=== PATIENT | female | born 1945 | race Asian ===

== ENCOUNTER 2021-03-30 00:57 | Emergency (ER) | payer MEDICARE, MEDICAID, SELFPAY ==
[2021-03-30] VITALS (7 sets, daily range): BP systolic 169–204; BP diastolic 61–125; PULSE 103–115; RESP 19–24; TEMP 37–37.2; O2SAT 92–99; BMI 19.3
--- NOTE | ~2021-03-30 | XR_ITS ---
EXAMINATION: XR CHEST CLINICAL INFORMATION: Shortness of breath, rule out pneumonia, CHF COMPARISON: None TECHNIQUE: Frontal view of the chest was obtained. FINDINGS: Lung volumes are symmetric. There is prominence of the central vasculature with scattered perihilar opacities bilaterally. Dense retrocardiac opacity noted at the left base. Small left pleural effusion. No appreciable pneumothorax. Cardiac size is within normal limits. There is atherosclerotic calcification along the aorta. No acute osseous findings are seen. XR/XR chest 1V IMPRESSION: Prominent central vasculature with scattered perihilar opacities and dense retrocardiac left basilar opacity. Central vascular congestion is suspected, and parenchymal findings therefore may be secondary to edema, though multifocal pneumonia could also have this appearance.
--- NOTE | 2021-03-30 01:20 | PC.NURSE ---
pt sat on room air 88%, 2L Applied and sat improved to 98% on 2l
--- NOTE | 2021-03-30 04:40 | ECG_ITS ---
Test Reason : cp,sob Blood Pressure : / mmHG Vent. Rate : 110 BPM Atrial Rate : 110 BPM P-R Int : 126 ms QRS Dur : 074 ms QT Int : 340 ms P-R-T Axes : 057 071 058 degrees QTc Int : 460 ms Sinus tachycardia Possible Left atrial enlargement Borderline ECG No previous ECGs available Referred By: Eric Roque Electronically Signed By:LESLIE TREVINO MD
--- NOTE | 2021-03-30 04:41 | ED.SOB ---
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 The patient has end-stage renal disease and was getting hemodialysis. The patient recently switched over to peritoneal dialysis. According to her daughter, the patient was being trained at a facility and last got peritoneal dialysis on Tuesday (2 days prior). The plan was to start peritoneal dialysis again on Tuesday. The daughter states that the patient was complaining of fatigue over the past 1-2 days, she was complaining of shortness of breath and the patient's face looked puffy. The daughter was concerned about these symptoms this morning and called an ambulance and had the patient transported to the hospital for evaluation. MD elicited complaint: shortness of breath Pertinent past history: other (End-stage renal disease, just started peritoneal dialysis) Onset (ago): day(s) (1) Timing: constant Severity: moderate Exacerbating factors: nothing Relieving factors: nothing Associated symptoms: cough Treatment prior to arrival: none Related Data Allergies Allergy/AdvReac Type Severity Reaction Status Date / Time amoxicillin Allergy Unknown Unknown Verified 03/30/21 04:39 Review of Systems Review of Systems: Yes all other systems are reviewed and are negative [facility] Social History Social History Advance Directives: No Physical Exam Vital Signs: Vital Signs: Last Vital Signs Temp 98.7 F 03/30/21 05:26 Pulse 105 H 03/30/21 05:26 Resp 20 03/30/21 05:26 BP 186/61 H 03/30/21 05:26 Pulse Ox 92 03/30/21 05:26 Oxygen Flow Rate 2 03/30/21 01:06 BMI result Body Mass Index 19.3 Const: General: cooperative and no acute distress Orientation/consciousness: oriented to person and oriented to place Limitations: no limitations HENMT: Head: Yes normal to inspection, Yes normocephalic and Yes atraumatic Ears: external ears normal General nose exam: Normal external nose present Face and sinus: Yes normal facial exam Mouth: Normal oral and palatal mucosa present Throat: Yes posterior oropharynx normal Eyes: General: appearance normal, both eyes and all related structures Pupils: Equal, round and reactive pupils present Neck: Neck: Yes normal visual inspection, Yes no lymphadenopathy, Yes trachea midline and Yes supple Chest: Chest palpation & inspection: normal inspection of the chest and normal palpation of entire chest wall Resp: Effort & Inspection: normal respiratory effort Auscultation: clear to auscultation bilaterally and rales (At bases, symmetric) Cardio: Rate: regular rate Rhythm: regular rhythm Heart sounds: S1 normal heart sound present, S2 normal heart sound present and no murmurs GI: Inspection: Yes normal to inspection Palpation (GI): Soft to palpation, nontender and no guarding Auscultation: normal bowel sounds : General: Yes no CVA tenderness Back/Spine/Pelvis: Back: no CVA tenderness Skin: General skin exam: no rashes or lesions noted Neuro: General: oriented to person and oriented to place Cranial nerves: Yes CN's II-XII intact bilaterally and Yes Equal, round and reactive pupils present Cognition (Neuro): normal cognition Motor exam (neuro): 5/5 motor strength present throughout Extrem: General: Yes normal to inspection Psych: Appearance: grossly normal Affect: normal affect Attitude: cooperative Thought process: Normal thought process present Course Course Course Narrative: 76-year-old female who has a history of end-stage renal disease who was on hemodialysis who just recently changed to peritoneal veil dialysis. Peritoneal dialysis was last done on Tuesday (2 days prior). Apparently over the past 1-2 days the patient has been more short of breath, fatigued and the daughter noticed puffiness of the patient's face. Therefore the daughter called 911 and had the patient transported to the emergency department for evaluation. Initial vital signs revealed an elevated blood pressure of 194/125, repeat was 185/66, patient is tachycardic with a pulse ranging mental 5-115, respiratory rate ranged from 19 to 24, she was afebrile and her O2 saturation on room air was 98%. The patient does not appear to be in distress. Lung exam did reveal rales at the bases. Differential includes but is not limited to pneumonia, CHF, fluid overload. I ordered a CBC, CMP, BNP, troponin, COVID-19, EKG, one-view chest x-ray. 0657: Patient's laboratory evaluation revealed chronic anemia with an H&H of 8.3 and 26. Patient's BUN and creatinine were elevated 58 in 10.2. Potassium was elevated at 5.6. Troponin was elevated at 700. COVID-19 was negative. Chest x-ray is consistent with congestive heart failure. I will discuss the patient's presentation with the covering transportation museum helper. Impression is that the patient may need to be hospitalized for either peritoneal dialysis or hemodialysis. 0728: At the end of my shift, still waiting for the transportation museum helper call back. Therefore the patient's care was turned over to my colleague, Dr. Linda Ruiz. I did update the patient's daughter on the plan to admit the patient for hemodialysis. MDM - SOB/Dyspnea Lab Data Result diagrams: 03/30/21 06:02 03/30/21 06:02 Labs: Lab Results 03/30/21 03/30/21 03/30/21 Range/Units 06:02 06:02 06:02 WBC 10.2 (4.8-10.8) X10*3/uL RBC 2.61 L (4.20-5.50) X10*6/uL Hgb 8.3 L (12.0-16.0) g/dl Hct 26.0 L (37.0-47.0) % MCV 99.6 H (80.0-98.0) fL MCH 31.8 (27.0-33.0) pg MCHC 31.9 (31.0-35.0) g/dl RDW 15.3 (11.0-16.0) % Plt Count 186 (160-400) X10*3/uL MPV 10.1 (9.4-12.3) fL Immature Gran % (Auto) 0.5 H (0.0-0.4) % Neut % (Auto) 75.2 H (45-73) % Lymph % (Auto) 15.3 L (20-40) % [place] % (Auto) 8.1 (2-11) % Eos % (Auto) 0.6 (0-4) % Baso % (Auto) 0.3 (0-2) % Lymph # (Auto) 1.6 (1.2-4.9) X10*3/uL [place] # (Auto) 0.8 (0.1-1.2) X10*3/uL Eos # (Auto) 0.1 (0.0-0.4) X10*3/uL Baso # (Auto) 0.0 (0.0-0.2) X10*3/uL Abs Immat Gran (auto) 0.05 H (0.00-0.03) X10*3/uL Absolute Neuts (auto) 7.7 (2.0-8.3) x10*3/uL Absolute Nucleated RBC 0.000 (0.0-0.012) X10*3/uL Nucleated RBC % (auto) 0.0 (0.0-0.2) /100WBC Sodium 140 (135-145) mmol/L Potassium 5.6 H (3.3-5.1) mmol/L Chloride 103 (96-108) mmol/L Carbon Dioxide 22 (22-29) mmol/L Anion Gap 21 H (12-20) BUN 58 H (9-16) mg/dL Creatinine 10.24 H* (0.5-1.4) mg/dL Estim Creat Clear Calc 3.2 Estimated GFR 4 Random Glucose 117 H (60-115) mg/dL Calcium 9.1 (8.4-10.2) mg/dL Total Bilirubin 0.6 (0.0-1.0) mg/dL AST 16 (5-31) U/L ALT 6 (0-31) U/L Alkaline Phosphatase 99 (39-117) U/L Troponin I High Sens 700.9 H* (<3.5-17.0) ng/L B-Natriuretic Peptide 3010 H (<100) pg/mL Total Protein 6.0 L (6.5-8.0) g/dL Albumin 3.6 (3.5-5.0) g/dL Lipase 23 (8-78) U/L COVID-19 ([facility]ENE) (Negative) COVID-19 Clin Com 03/30/21 Range/Units 06:02 WBC (4.8-10.8) X10*3/uL RBC (4.20-5.50) X10*6/uL Hgb (12.0-16.0) g/dl Hct (37.0-47.0) % MCV (80.0-98.0) fL MCH (27.0-33.0) pg MCHC (31.0-35.0) g/dl RDW (11.0-16.0) % Plt Count (160-400) X10*3/uL MPV (9.4-12.3) fL Immature Gran % (Auto) (0.0-0.4) % Neut % (Auto) (45-73) % Lymph % (Auto) (20-40) % [place] % (Auto) (2-11) % Eos % (Auto) (0-4) % Baso % (Auto) (0-2) % Lymph # (Auto) (1.2-4.9) X10*3/uL [place] # (Auto) (0.1-1.2) X10*3/uL Eos # (Auto) (0.0-0.4) X10*3/uL Baso # (Auto) (0.0-0.2) X10*3/uL Abs Immat Gran (auto) (0.00-0.03) X10*3/uL Absolute Neuts (auto) (2.0-8.3) x10*3/uL Absolute Nucleated RBC (0.0-0.012) X10*3/uL Nucleated RBC % (auto) (0.0-0.2) /100WBC Sodium (135-145) mmol/L Potassium (3.3-5.1) mmol/L Chloride (96-108) mmol/L Carbon Dioxide (22-29) mmol/L Anion Gap (12-20) BUN (9-16) mg/dL Creatinine (0.5-1.4) mg/dL Estim Creat Clear Calc Estimated GFR Random Glucose (60-115) mg/dL Calcium (8.4-10.2) mg/dL Total Bilirubin (0.0-1.0) mg/dL AST (5-31) U/L ALT (0-31) U/L Alkaline Phosphatase (39-117) U/L Troponin I High Sens (<3.5-17.0) ng/L B-Natriuretic Peptide (<100) pg/mL Total Protein (6.5-8.0) g/dL Albumin (3.5-5.0) g/dL Lipase (8-78) U/L COVID-19 ([facility]ENE) Negative (Negative) COVID-19 Clin Com See Note Discharge Plan Discharge Clinical Impression: CHF (congestive heart failure), Acute hyperkalemia Patient Disposition: Still a Patient
[2021-03-30 06:08] LABS: Basophils Percent Auto 0.3 % (0-2); Eosinophils Absolute Auto 0.1 X10*3/uL (0.0-0.4); Eosinophils Percent Auto 0.6 % (0-4); Hemoglobin 8.3 g/dl (12.0-16.0); Imm Gran Abs Auto 0.05 X10*3/uL (0.00-0.03); Imm Gran Pct Auto 0.5 % (0.0-0.4); Lymphocytes Absolute Auto 1.6 X10*3/uL (1.2-4.9); Lymphocytes Percent Auto 15.3 % (20-40); MANUAL DIFF FLAG NO; Mean Corpuscular HGB Conc 31.9 g/dl (31.0-35.0); Mean Corpuscular Hemoglobin 31.8 pg (27.0-33.0); Mean Corpuscular Volume 99.6 fL (80.0-98.0); Mean Platelet Volume 10.1 fL (9.4-12.3); Monocytes Absolute Auto 0.8 X10*3/uL (0.1-1.2); Monocytes Percent Auto 8.1 % (2-11); Neutrophils Absolute Auto 7.7 x10*3/uL (2.0-8.3); Neutrophils Percent Auto 75.2 % (45-73); Platelet Count 186 X10*3/uL (160-400); Red Blood Count 2.61 X10*6/uL (4.20-5.50); Red Cell Distribution Width 15.3 % (11.0-16.0); White Blood Count 10.2 X10*3/uL (4.8-10.8)
--- NOTE | 2021-03-30 06:20 | PC.NURSE ---
pt is a difficult iv stick, labs obtained but unable to place iv at this time.
[2021-03-30 06:21] LABS: COVID-19 Test Negative (Negative); IDNOW Serial# 9DD0AD1C
[2021-03-30 06:24] LABS: Alanine Aminotransferase 6 U/L (0-31); Albumin Level 3.6 g/dL (3.5-5.0); Alkaline Phosphatase 99 U/L (39-117); Anion Gap 21 (12-20); Aspartate Amino Transferase 16 U/L (5-31); Bilirubin Total 0.6 mg/dL (0.0-1.0); Blood Urea Nitrogen 58 mg/dL (9-16); Calcium 9.1 mg/dL (8.4-10.2); Carbon Dioxide 22 mmol/L (22-29); Chloride 103 mmol/L (96-108); Glucose Random 117 mg/dL (60-115); Lipase 23 U/L (8-78); Potassium 5.6 mmol/L (3.3-5.1); Sodium 140 mmol/L (135-145)
[2021-03-30 06:25] LABS: Creatinine Clr Calc Pharmacy 3.2; Estimated Glomerular Filt Rate 4
[2021-03-30 06:27] LABS: B Type Natriuretic Peptide 3010 pg/mL (<100)
[2021-03-30 06:30] LABS: Troponin-I High Sensitivity 700.9 ng/L (<3.5-17.0)
[2021-03-30] MEDS: Nitroglycerin 2 % Oint 1 GM Packet 1 INCH TRANSDERMA (09:53)
[2021-03-30] MEDS: Furosemide 100 MG/10 ML VIAL 80 MG IVPUSH (09:53)
--- NOTE | 2021-03-30 10:00 | PC.NURSE ---
CALL PLACED TO [facility] PER DR GONZÁLES @ THIS TIME [place] ANSWERS,TAKES PTT INFO AND ASKS TO SPEAK WITH DR GONZÁLES
--- NOTE | 2021-03-30 10:46 | PC.NURSE ---
DANISH FROM [facility] PT PLACEMENT CALLS @ THIS TIME AND ASKS TO SPEAK WITH DR GONZÁLES, DR GONZÁLES TAKES OVER CALL RIGHT AWAY
--- NOTE | 2021-03-30 10:50 | PHA.MEDREC ---
Pharmacy Consult ? Medication Reconciliation Pharmacy has completed the medication reconciliation. Spoke to pt's daughter Az who confirmed medication list. Molly Contreras, SuzannaD
[2021-03-30 11:17] LABS: Troponin-I High Sensitivity 1062.7 ng/L (<3.5-17.0)
[2021-03-30] MEDS: cloNIDine HCL 0.1 MG TABLET PO (13:02)
[2021-03-30] MEDS: hydrALAZINE HCl 25 MG TABLET PO (13:02)
[2021-03-30 13:15] LABS: Appearance Urine CLOUDY; Color Urine STRAW; Glucose Urine UA 100 MG/DL (NEG); Leukocyte Esterase Urine 2+ (NEG); Nitrite Urine NEG (NEG); UACC Culture Trigger YES; Urine Blood TRACE (NEG); Urine Ketones NEG (NEG); Urine Protein 1+ MG/DL (NEG-TRACE)
[2021-03-30 13:40] LABS: Bacteria Urine 1+ /LPF; Renal Epithelial Cells Urine 1+ /LPF; Squamous Epithelial Cell Urine 1+ /LPF; WBC Urine 30-49 /HPF (0-4)
--- NOTE | 2021-03-30 14:35 | PC.NURSE ---
@ 1433 CALL OUT TO [facility] PT TX LINE TO CHECK ROOM ASSIGNMENT FOR THIS PT JOSELIN ANSWERS AND STATES THIS INFO [place]ED [place] [facility] [place] [facility] [place] 1249PM [address], S [id number] BED A RN TO RN: [phone]
== END 2021-03-30 16:27 | disposition short-term general hospital (02) ==
PROVIDERS: Emergency Medicine; Emergency Provider Emergency Medicine Emergency Medical Services; PCP Nurse Practitioner Family
DX: I50.9 Heart failure, unspecified (principal); Z20.822 Contact with and (suspected) exposure to COVID-19; R06.02 Shortness of breath; E87.5 Hyperkalemia; R00.0 Tachycardia, unspecified; R53.83 Other fatigue; N18.6 End stage renal disease; Z99.2 Dependence on renal dialysis
CPT/HCPCS: 36415; 71045; 80053; 81001; 83690; 83880; 84484; 85025; 87086; 87088; 87186; 87635; 93005; 96374; 99285; J1940